=== PATIENT | female | born 1975 | race Two or more races ===

== ENCOUNTER 2019-09-06 15:52 | Inpatient (IN) | payer MEDICAID ==
[~2019-09-06] VITALS: Ht 165.1 cm; Wt 110.0 kg
[2019-09-06 16:25] LABS: Urine Bacteria MOD /hpf (None Seen); Urine Blood 2+ /uL (Negative); Urine Specific Gravity 1.017 (1.001-1.035); Urine WBC 1153 /hpf (0 - 5); Urine WBC Clumps PRESENT /hpf (None Seen)
[2019-09-06 16:45] LABS: Basophils # (auto) 0 uL; Basophils % (auto) 0.1 % (0.0-2.0); Eosinophils # (auto) 0 uL; Eosinophils % (auto) 0.1 % (0.0-7.0); Hematocrit 35.3 % (36.0-46.0); Hemoglobin 12.4 g/dL (12.2-16.2); Lymphocytes # (auto) 0.9 uL; Lymphocytes % (auto) 10.4 % (10.0-50.0); Mean Corpuscular Hemoglobin 31.2 pg (28.0-32.0); Mean Corpuscular Hgb Conc. 35.1 g/dL (32.0-36.0); Mean Corpuscular Volume 88.9 fL (80.0-100.0); Monocytes # (auto) 0.6 uL; Monocytes % (auto) 6.6 % (0.0-12.0); Neutrophils # (auto) 7.3 uL; Neutrophils % (auto) 82.8 % (37.0-80.0); Nucleated Red Blood Cells % 0.1 %; Platelet Count (auto) 187 10^3/uL (140-450); Red Blood Cells 3.97 10^6/uL (4.0-5.20); Red Cell Distribution Width 13.1 % (11.8-14.3); White Blood Cell 8.8 10^3/uL (4.4-10.8)
[2019-09-06 17:09] LABS: Albumin 3.5 g/dL (3.4-5.0); BUN/Creatinine Ratio 8.9; Calcium 8.7 mg/dL (8.5-10.1); Potassium 3.6 mmol/L (3.5-5.1)
[2019-09-06 17:11] LABS: Bilirubin, Total 2.1 mg/dL (0.2-1.0); Total Protein 7.8 g/dL (6.4-8.2)
[2019-09-06] MEDS ORDERED: ONDANSETRON HCL 4 MG/2 ML VIAL IV ONE (18:00)
[2019-09-06] MEDS ORDERED: SODIUM CHLORIDE 0.9% 1,000 ML IV ONE (18:00)
[2019-09-06] MEDS ORDERED: MORPHINE SULF INJ 2 MG/ML SYRINGE 1ML IV ONE (18:00)
[2019-09-06 18:18] LABS: Amylase 30 U/L (25-115); Lipase 176 U/L (73-393)
[2019-09-06] MEDS ORDERED: cefTRIAXone 1GM/50ML D5W 50 ML IV ONE (19:00)
[2019-09-06] MEDS ORDERED: ACETAMINOPHEN 500 MG TAB PO PRN (20:00)
[2019-09-06] MEDS ORDERED: NITROGLYCERIN 0.4 MG SL TAB SL PRN (20:00)
[2019-09-06] MEDS ORDERED: MORPHINE SULF INJ 2 MG/ML SYRINGE 1ML IV PRN ×2 (20:00)
[2019-09-06] MEDS ORDERED: ONDANSETRON HCL 4 MG/2 ML VIAL IV PRN (20:00)
[2019-09-06] MEDS: SODIUM CHLORIDE 0.9% 1,000 ML IV SCH (20:40)
[2019-09-06 21:00] VITALS: BP 97/53
--- NOTE | 2019-09-06 21:00 | NUR ---
MS admit from ER KIKAMATTHEW admitted to tele/MS after SBAR received from Cathie GILMAN. Patient oriented to Lexi Guerra RN primary RN, unit, room, bed, and unit policies regarding patient care and visiting hours. Patient weighed by bedscale and encouraged to call if they need something. All questions and concerns addressed, patient verbalized understanding. Note: Fall and safety precautions in place. Call light within reach.
--- NOTE | 2019-09-06 21:15 | NUR ---
TEMP Informed by TORTS LAW PROFESSOR that patient has temp of 101F. Cooling measures initiated and patient has been medication with PRN medication by [employer]ON[employer] (see emar). Will recheck approximately 1 hour after PRN medications administration.
--- NOTE | 2019-09-06 22:35 | NUR ---
URINE SAMPLE Urine sample collected and sent to lab via bullet
[2019-09-06] MEDS ORDERED: INFLUENZA QUAD 2019-2020 0.5ml SYRG IM ONE (22:45)
[2019-09-06 22:49] VITALS: BP 97/53
[2019-09-07] MEDS: SODIUM CHLORIDE 0.9% 1,000 ML IV SCH ×3 (03:57→17:41)
[2019-09-07] MEDS: HYDROcodone-ACET 5/325MG TAB PO PRN ×3 (04:48→22:36)
[2019-09-07 05:26] VITALS: BP 98/62
[2019-09-07 06:26] LABS: Basophils # (auto) 0 uL; Basophils % (auto) 0.4 % (0.0-2.0); Eosinophils # (auto) 0 uL; Eosinophils % (auto) 0.4 % (0.0-7.0); Hematocrit 31.6 % (36.0-46.0); Hemoglobin 11.3 g/dL (12.2-16.2); Lymphocytes # (auto) 1.6 uL; Lymphocytes % (auto) 22.9 % (10.0-50.0); Mean Corpuscular Hemoglobin 31.8 pg (28.0-32.0); Mean Corpuscular Hgb Conc. 35.6 g/dL (32.0-36.0); Mean Corpuscular Volume 89.3 fL (80.0-100.0); Monocytes # (auto) 0.9 uL; Monocytes % (auto) 11.9 % (0.0-12.0); Neutrophils # (auto) 4.6 uL; Neutrophils % (auto) 64.4 % (37.0-80.0); Platelet Count (auto) 174 10^3/uL (140-450); Red Blood Cells 3.54 10^6/uL (4.0-5.20); Red Cell Distribution Width 13.1 % (11.8-14.3); White Blood Cell 7.2 10^3/uL (4.4-10.8)
[2019-09-07 06:35] LABS: BUN/Creatinine Ratio 8.2; Calcium 7.7 mg/dL (8.5-10.1); Potassium 3.5 mmol/L (3.5-5.1)
--- NOTE | 2019-09-07 07:45 | NUR ---
Opening Note Received report from lieutenant shift supervisor RN. Patient is awake, alert and oriented x4. No signs or symptoms of distress noted at this time. Patient states flank pain 5/10, will medicate per orders. Patient is on room air, respirations even and unlabored. Reviewed plan of care with patient, patient verbalized understanding. Bed in low and locked position, call light within reach. Will continue to monitor Q1 hour and PRN.
[2019-09-07 09:00] VITALS: BP 90/64
[2019-09-07] MEDS: FAMOTIDINE 20 MG TAB PO SCH (10:06)
--- NOTE | 2019-09-07 10:10 | NUR ---
Dr. Arroyo at bedside Updating patient and family on plan of care. New orders received for Rocephin IVPB 2gm, administer now. Will continue to monitor Q1 hour and PRN.
[2019-09-07] MEDS ORDERED: cefTRIAXone 1GM/50ML D5W 50 ML IV ONE (10:15)
[2019-09-07 11:43] LABS: Alcohol, Urine < 3.0 mg/dL (0-5); Amphetamine Screen, Urine NEGATIVE (NEGATIVE); Barbiturate Scree,Urine NEGATIVE (NEGATIVE); Benzodiazephine Screen, Urine NEGATIVE (NEGATIVE); Cannabinoid Screen, Urine NEGATIVE (NEGATIVE); Cocaine Screen, Urine NEGATIVE (NEGATIVE); Opiate Scree,Urine NEGATIVE (NEGATIVE); Phencyclidine Screen, Urine NEGATIVE (NEGATIVE)
[2019-09-07 11:45] LABS: Albumin 2.6 g/dL (3.4-5.0); BUN/Creatinine Ratio 9.7; Calcium 7.9 mg/dL (8.5-10.1); Magnesium 2.1 mg/dL (1.6-2.6); Potassium 3.4 mmol/L (3.5-5.1)
[2019-09-07 11:48] LABS: Bilirubin, Total 0.9 mg/dL (0.2-1.0); Total Protein 6.5 g/dL (6.4-8.2)
[2019-09-07] MEDS ORDERED: POTASSIUM CHL 20 Meq TABLET PO ONE (12:15)
[2019-09-07 12:57] LABS: Hepatitis B Surface Antibody Negative
[2019-09-07 13:00] VITALS: BP 96/56
[2019-09-07 13:13] LABS: Cholesterol 150 mg/dL (< 200)
[2019-09-07 13:16] LABS: HDL Cholesterol 45 mg/dL (40-59); LDL Cholesterol 97 mg/dL (< 100); Triglycerides 136 mg/dL (< 150)
[2019-09-07 13:35] LABS: Hepatitis A Total Antibody Positive
[2019-09-07 14:06] LABS: Hepatitis B Core Total AB Negative; Hepatitis B Surface Antigen Negative (Negative); Hepatitis C Antibody Negative (Negative)
--- NOTE | 2019-09-07 14:10 | NUR ---
Pain Patient complains of left flank pain 8/10. Will administer PRN pain medications. Will continue to monitor Q1 hour and PRN.
[2019-09-07 17:00] VITALS: BP 95/61
[2019-09-07] MEDS: cefTRIAXone 1GM/50ML D5W 50 ML IV SCH (18:12)
--- NOTE | 2019-09-07 19:13 | NUR ---
Closing Note Report given to juice packaging machines setter RN. No signs or symptoms of distress noted at this time. Family at bedside
--- NOTE | 2019-09-07 19:30 | NUR ---
Opening Assumed care of patient, awake and alert. No S/S of distress/SOB or pain. Insructed on POC and to callfor assist PRN, will continue to monitor for changes Q1hr and PRN. Fall and safety precautions in place. Call light within reach.
[2019-09-07 22:00] VITALS: BP 95/51
[2019-09-08] MEDS: SODIUM CHLORIDE 0.9% 1,000 ML IV SCH ×4 (03:54→22:47)
[2019-09-08 05:38] VITALS: BP 91/58
[2019-09-08 06:58] LABS: Basophils # (auto) 0 uL; Basophils % (auto) 0.3 % (0.0-2.0); Eosinophils # (auto) 0.1 uL; Eosinophils % (auto) 1.1 % (0.0-7.0); Hematocrit 29.8 % (36.0-46.0); Hemoglobin 10.7 g/dL (12.2-16.2); Mean Corpuscular Hemoglobin 31.9 pg (28.0-32.0); Mean Corpuscular Hgb Conc. 35.8 g/dL (32.0-36.0); Mean Corpuscular Volume 89.1 fL (80.0-100.0); Monocytes # (auto) 0.7 uL; Monocytes % (auto) 10.7 % (0.0-12.0); Neutrophils # (auto) 3.4 uL; Neutrophils % (auto) 55.9 % (37.0-80.0); Nucleated Red Blood Cells % 0.1 %; Platelet Count (auto) 182 10^3/uL (140-450); Red Blood Cells 3.35 10^6/uL (4.0-5.20); Red Cell Distribution Width 13.2 % (11.8-14.3); White Blood Cell 6.1 10^3/uL (4.4-10.8)
[2019-09-08 07:06] LABS: Albumin 2.6 g/dL (3.4-5.0); Calcium 7.9 mg/dL (8.5-10.1); Potassium 3.8 mmol/L (3.5-5.1)
[2019-09-08 07:08] LABS: BUN/Creatinine Ratio 10.2
[2019-09-08 07:11] LABS: Bilirubin, Total 0.8 mg/dL (0.2-1.0); Total Protein 6.5 g/dL (6.4-8.2)
--- NOTE | 2019-09-08 07:40 | NUR ---
OPENING NOTE ASSUMED CARE OF PT. ALERT AND ORIENTED. NO S/S SOB/DISTRESS NOTED. DENIES ANY PAIN. SAFETY PRECAUTIONS IN PLACE. BED SET TO LOWEST POSITION/LOCKED. BEDSIDE RAILS UP X2. CALL LIGHT WITHIN REACH. INSTRUCTED PT TO CALL FOR ASSISTANCE. UPDATED ON POC. PT VERBALIZED UNDERSTANDING WILL CONTINUE TO MONITOR Q1HR AND PRN.
[2019-09-08 09:00] VITALS: BP 94/58
[2019-09-08] MEDS: HYDROcodone-ACET 5/325MG TAB PO PRN ×2 (09:10→18:15)
[2019-09-08] MEDS: FAMOTIDINE 20 MG TAB PO SCH (09:10)
[2019-09-08 13:00] VITALS: BP 85/47
--- NOTE | 2019-09-08 13:42 | NUR ---
MD DR. SRINIVASAN INFORMED PATIENT BP: 85/47. NEW ORDERS GIVEN/CARRIED OUT. WILL CONTINUE TO MONITOR.
[2019-09-08] MEDS ORDERED: SODIUM CHLORIDE 0.9% 1,000 ML IV ONE (13:50)
[2019-09-08 17:00] VITALS: BP 96/54
[2019-09-08] MEDS: cefTRIAXone 1GM/50ML D5W 50 ML IV SCH (18:18)
--- NOTE | 2019-09-08 19:25 | NUR ---
ENDORSED CARE TO KALINA DYE.
--- NOTE | 2019-09-08 19:30 | NUR ---
Opening Assumed care of patient, awake and alert. No S/S of distress/SOB or pain. Insructed on POC and to callfor assist PRN, will continue to monitor for changes Q1hr and PRN. Fall and safety precautions in place. Call light within reach. Family at bedside
[2019-09-08 22:00] VITALS: BP 101/55
[2019-09-09] MEDS: SODIUM CHLORIDE 0.9% 1,000 ML IV SCH ×3 (04:55→17:35)
[2019-09-09 05:00] VITALS: BP 102/62
[2019-09-09 06:54] LABS: Albumin 2.8 g/dL (3.4-5.0); BUN/Creatinine Ratio 12.5; Magnesium 1.9 mg/dL (1.6-2.6); Potassium 3.5 mmol/L (3.5-5.1)
[2019-09-09 06:57] LABS: Bilirubin, Total 0.8 mg/dL (0.2-1.0); Total Protein 6.8 g/dL (6.4-8.2)
[2019-09-09 09:00] VITALS: BP 107/68
[2019-09-09] MEDS: HYDROcodone-ACET 5/325MG TAB PO PRN (09:48)
[2019-09-09] MEDS: FAMOTIDINE 20 MG TAB PO SCH (09:49)
[2019-09-09] MEDS ORDERED: traMADol HCL 50 MG TAB PO PRN (11:15)
[2019-09-09 11:52] LABS: INR < 0.93 (0.9-1.15)
[2019-09-09 13:00] VITALS: BP 102/60
[2019-09-09 17:00] VITALS: BP 116/72
[2019-09-09] MEDS: cefTRIAXone 1GM/50ML D5W 50 ML IV SCH (20:10)
[2019-09-09 21:48] VITALS: BP_SYST 107; BP_SYST 155; BP_DIAS 66; BP_DIAS 82
[2019-09-10] MEDS: SODIUM CHLORIDE 0.9% 1,000 ML IV SCH ×3 (00:15→13:35)
[2019-09-10 05:25] VITALS: BP 102/65
[2019-09-10 07:03] LABS: Albumin 2.8 g/dL (3.4-5.0); Calcium 7.9 mg/dL (8.5-10.1); Potassium 3.4 mmol/L (3.5-5.1)
[2019-09-10 07:05] LABS: BUN/Creatinine Ratio 10.6
[2019-09-10 07:08] LABS: Bilirubin, Total 0.7 mg/dL (0.2-1.0); Total Protein 6.4 g/dL (6.4-8.2)
[2019-09-10 08:58] VITALS: BP 118/64
[2019-09-10] MEDS: FAMOTIDINE 20 MG TAB PO SCH (10:00)
[2019-09-10 11:26] VITALS: BP 118/64
[2019-09-10 13:00] VITALS: BP 110/59
[2019-09-10] MEDS ORDERED: INFLUENZA QUAD 2019-2020 0.5ml SYRG IM ONE (13:55)
--- NOTE | 2019-09-10 14:30 | NUR ---
Discharge instructions given as ordered. Encourage to follow up with PMD as instructed. All questions and concerns addressed. Patient verbalized understanding. Medication reconciliation form completed and copy given to patient. Needed vaccines given. IV removed with catheter intact, pressure dressing applied. Patient ambulated to vehicle with all personal belongings, accompanied by staff and family member. No distress noted at time of departure.
== END 2019-09-10 14:30 | disposition home or self-care (01) | DRG 463 ==
LOC: ER 15:56 → OVERFLOW 15:57 → CENTRAL 21:00
PROVIDERS: ADMIT Nurse Practitioner Acute Care; ATTEND Internal Medicine
DX: N12 Tubulo-interstitial nephritis, not specified as acute or chronic (principal); K76.0 Fatty (change of) liver, not elsewhere classified; R16.1 Splenomegaly, not elsewhere classified; N34.2 Other urethritis; F17.210 Nicotine dependence, cigarettes, uncomplicated; K57.30 Diverticulosis of large intestine without perforation or abscess without bleeding; B96.20 Unspecified Escherichia coli [E. coli] as the cause of diseases classified elsewhere; Z90.49 Acquired absence of other specified parts of digestive tract; Z90.710 Acquired absence of both cervix and uterus; Z82.49 Family history of ischemic heart disease and other diseases of the circulatory system; Z83.3 Family history of diabetes mellitus
CPT/HCPCS: 36415; 70450; 74176; 76700; 80048; 80053; 80061; 80307; 81001; 82150; 82248; 83036; 83516; 83520; 83540; 83550; 83690; 83735; 84443; 85025; 85610; 85730; 86225; 86235; 86256; 86703; 86704; 86706; 86708; 86803; 87040; 87086; 87088; 87186; 87340; 94761; 96361; 96365; 96375; G0378; J0696; J2405

== ENCOUNTER → 2019-09-15 | Outpatient (CLI) | payer MEDICAID ==
[2019-09-15 13:46] LABS: Urine Bacteria NONE SEEN /hpf (None Seen); Urine Blood 1+ /uL (Negative); Urine WBC 1 /hpf (0 - 5)
[2019-09-15 14:09] LABS: Albumin 3.7 g/dL (3.4-5.0); BUN/Creatinine Ratio 18.2; Calcium 9.3 mg/dL (8.5-10.1); Potassium 3.9 mmol/L (3.5-5.1)
== END | disposition home or self-care (01) ==
LOC: LAB 13:28
PROVIDERS: ATTEND Internal Medicine
DX: R16.2 Hepatomegaly with splenomegaly, not elsewhere classified (principal)
CPT/HCPCS: 36415; 80053; 81001